=== PATIENT | female | born 1955 | race Caucasian/White ===

== ENCOUNTER → 2017-08-04 | Outpatient (CLI) | payer BC ==
[~2017-08-04] MED LIST: BROM0.07 OPR; COEN1CAP7 PO; LISI-787 PO; MAGN1CAP2 PO; MULT-506 PO; OMEG10007 PO; PRED1SUS3 OPR; VALA500T39 PO
== END | disposition home or self-care (01) ==
LOC: C.PAPS 12:49
PROVIDERS: ATTEND Obstetrics & Gynecology
DX: Z01.419 Encounter for gynecological examination (general) (routine) without abnormal findings (principal)